=== PATIENT | female | born 1995 | race Caucasian/White ===

== ENCOUNTER → 2016-11-18 | Outpatient (CLI) | payer BC, MEDICARE | LOC: GENOP 20:49 | DX: O16.3 Unspecified maternal hypertension, third trimester (principal); Z3A.38 38 weeks gestation of pregnancy | CPT/HCPCS: 81001; G0463 ==

== ENCOUNTER 2016-11-21 18:35 | Outpatient (CLI) | payer BC, MEDICARE | END 2016-11-21 21:21 | disposition home or self-care (01) | LOC: GENOP 18:35 | DX: O36.8130 Decreased fetal movements, third trimester, not applicable or unspecified (principal); Z3A.38 38 weeks gestation of pregnancy | CPT/HCPCS: 59025 ==

== ENCOUNTER 2016-11-28 22:52 | Outpatient (CLI) | payer BC, MEDICARE | END 2016-11-29 00:28 | disposition home or self-care (01) | LOC: GENOP 22:52 | DX: O16.3 Unspecified maternal hypertension, third trimester (principal); Z3A.39 39 weeks gestation of pregnancy | CPT/HCPCS: G0463 ==

== ENCOUNTER 2022-02-19 19:17 | Emergency (ER) | payer SELFPAY ==
[~2022-02-19 19:17] MED LIST: CEFUROXIME500 MG PO
[2022-02-19 19:58] LABS: HEMOGLOBIN 14.5 gm/dl (12.3-15.3); RED BLOOD COUNT 4.9 M/UL (4.00-5.10); WHITE BLOOD COUNT 9.3 K/UL (4.5-11.0)
[2022-02-19 20:18] LABS: BUN/CREATININE RATIO 11 (0-10)
[2022-02-20] MEDS ORDERED: PROTONIX40 MG PO (02:09)
[2022-02-20] MEDS ORDERED: ZOFRAN 4 MG TAB4 MG PO (02:09)
== END 2022-02-20 02:35 | disposition home or self-care (01) ==
LOC: ER1 19:17
PROVIDERS: Nurse Practitioner
DX: E87.6 Hypokalemia (principal); R19.7 Diarrhea, unspecified; R10.84 Generalized abdominal pain; Z88.0 Allergy status to penicillin; Z20.822 Contact with and (suspected) exposure to COVID-19
CPT/HCPCS: 80053; 81001; 83690; 84703; 85025; 96374; 96375; 99284; C9113; J2405; U0002